=== PATIENT | female | born 1940 | race African-American/Black ===

== ENCOUNTER 2021-09-07 11:57 | Inpatient (IN) | payer MEDICARE ==
[~2021-09-07] VITALS: Ht 167.6 cm; Wt 99.3 kg
[2021-09-07] MEDS ORDERED: SODIUM CHLORIDE 0.9% 1,000 ML IV ONE (12:30)
[2021-09-07 12:39] LABS: BASOPHILS % 0.3 % (0.0-2.0); HEMATOCRIT. 34.1 % (36.0-48.0); HEMOGLOBIN. 11.7 g/dL (12.0-16.0); LYMPHOCYTES % 22.9 % (20.0-50.0); MEAN CORPUSCULAR HEMOGLOBIN 29.8 pg (28.0-32.0); MEAN PLATELET VOLUME 9.2 fl (7.4-10.4); MONOCYTES % 5.4 % (2.0-8.0); NEUTROPHILS % 68.4 % (40.0-76.0); PLATELET 192 x1000/uL (130-400); RED BLOOD CELL COUNT 3.91 mill/uL (4.2-5.4); RED CELL DISTRIBUTION WIDTH 13.4 % (11.6-14.6)
[2021-09-07 12:46] LABS: CHLORIDE 106 mEq/L (98-107)
[2021-09-07] MEDS ORDERED: DOCUSATE SODIUM 100MG CAPSULE PO PRN (19:15)
[2021-09-07] MEDS ORDERED: GUAIFENESIN 200MG/10ML SUGAR FREE UDC PO PRN (19:15)
[2021-09-07] MEDS ORDERED: MAGNESIUM/ALUMINUM HYDROXIDE/SIMETHICONE 30ML UDC PO PRN (19:15)
[2021-09-07] MEDS ORDERED: CLONIDINE 0.1MG TABLET PO PRN (19:15)
[2021-09-07] MEDS ORDERED: ONDANSETRON HCL 4MG/2ML INJ IV PRN (19:15)
[2021-09-07] MEDS ORDERED: TRAMADOL 50MG TABLET PO PRN (19:15)
[2021-09-07] MEDS ORDERED: ENOXAPARIN 40MG/0.4ML SYR SUBCUT SCH (19:15)
[2021-09-07] MEDS ORDERED: IPRATROPIUM/ALBUTEROL 0.5-3(2.5)MG/3ML NEB NEB PRN (19:15)
[2021-09-07] MEDS ORDERED: ACETAMINOPHEN 325MG TABLET PO PRN ×2 (19:15)
[2021-09-07] MEDS ORDERED: ZOLPIDEM TARTRATE 5MG TABLET PO PRN (19:15)
[2021-09-07] MEDS ORDERED: NITROGLYCERIN 0.4MG TABLET SL SL PRN (19:15)
[2021-09-07 19:44] LABS: ETHANOL BLOOD < 10 mg/dL
[2021-09-07 19:46] LABS: TOTAL IRON BINDING CAPACITY 257 ug/dL (250-450)
[2021-09-07 19:47] LABS: LDL CHOLESTEROL 66 mg/dL (5-100)
[2021-09-07 19:49] LABS: HDL CHOLESTEROL 44 mg/dL (40-59)
[2021-09-07 19:50] LABS: T4 FREE 0.93 ng/dL (0.76-1.46)
[2021-09-07 20:03] LABS: VITAMIN B12 SERUM 352 pg/mL (211-911)
[2021-09-07] MEDS ORDERED: DEXTROSE 50% WATER 50ML SYRINGE IV PRN (20:45)
[2021-09-07 20:52] LABS: FOLIC ACID (FOLATE) SERUM > 20.00 ng/mL (>5.38)
[2021-09-07] MEDS: BLOOD SUGAR DIAGNOSTIC STRIP TEST SCH (21:00)
[2021-09-07] MEDS: INSULIN LISPRO 100 UNITS/ML SUBCUT SCH (21:00)
[2021-09-07] MEDS: ENOXAPARIN 30MG/0.3ML SYR SUBCUT SCH (21:06)
[2021-09-07] MEDS: ASCORBIC ACID 500 MG TABLET PO SCH (21:06)
[2021-09-07] MEDS: FAMOTIDINE 20MG TABLET PO SCH (21:06)
[2021-09-07] MEDS: FUROSEMIDE 40MG/4ML VIAL IVP SCH (21:06)
[2021-09-07 21:55] LABS: *AMPHETAMINES SCREEN URINE NEGATIVE (NEGATIVE)
[2021-09-07 21:56] LABS: *BARBITURATES SCREEN URINE NEGATIVE (NEGATIVE); *BENZODIAZEPINES SCREEN URINE NEGATIVE (NEGATIVE); *COCAINE SCREEN URINE NEGATIVE (NEGATIVE); METHADONE URINE SCREEN NEGATIVE (NEGATIVE); OPIATES URINE SCREEN NEGATIVE (NEGATIVE); PHENCYCLIDINE URINE SCREEN NEGATIVE (NEGATIVE)
[2021-09-07 21:57] LABS: CANNABINOID URINE SCREEN NEGATIVE (NEGATIVE)
[2021-09-07] MEDS: HYDRALAZINE HCL 50MG TABLET PO SCH (22:23)
[2021-09-07] MEDS: SPIRONOLACTONE 25MG TABLET PO SCH (22:23)
[2021-09-08] VITALS (10 sets, daily range): BP systolic 128–163; BP diastolic 52–68
[2021-09-08 01:30] LABS: CREATINE KINASE 58 IU/L (26-192); CREATINE KINASE MB FRACTION < 1.0 ng/mL (0.5-3.6)
[2021-09-08 07:20] LABS: PHOSPHORUS 4.2 mg/dL (2.5-4.9)
[2021-09-08 07:23] LABS: CREATINE KINASE 62 IU/L (26-192)
[2021-09-08 07:24] LABS: CREATINE KINASE MB FRACTION < 1.0 ng/mL (0.5-3.6)
[2021-09-08] MEDS: INSULIN LISPRO 100 UNITS/ML SUBCUT SCH ×4 (07:40→20:57)
[2021-09-08] MEDS: BLOOD SUGAR DIAGNOSTIC STRIP TEST SCH ×4 (07:51→20:37)
[2021-09-08] MEDS: ASPIRIN 325MG EC TABLET PO SCH (08:27)
[2021-09-08] MEDS: ZINC SULFATE 220 MG ( 50 ) CAPSULE PO SCH (08:27)
[2021-09-08] MEDS: ASCORBIC ACID 500 MG TABLET PO SCH ×2 (08:27→20:36)
[2021-09-08] MEDS: SPIRONOLACTONE 25MG TABLET PO SCH ×2 (08:27→20:36)
[2021-09-08] MEDS: FUROSEMIDE 40MG/4ML VIAL IVP SCH ×2 (08:27→20:36)
[2021-09-08] MEDS ORDERED: CARV25TA47 MT (09:48)
[2021-09-08] MEDS ORDERED: ATOR20TA65 PO (09:48)
[2021-09-08] MEDS ORDERED: LOSA100T32 PO (09:48)
[2021-09-08] MEDS ORDERED: FURO-151 PO (09:48)
[2021-09-08] MEDS ORDERED: SPIR50TA5 PO (09:48)
[2021-09-08] MEDS ORDERED: PANT40SU PO (09:50)
[2021-09-08] MEDS ORDERED: HYDR-4135 MT (09:50)
[2021-09-08] MEDS ORDERED: APIX5TAB MT (09:50)
[2021-09-08] MEDS: HYDRALAZINE HCL 50MG TABLET PO SCH (13:14)
[2021-09-08] MEDS: FAMOTIDINE 20MG TABLET PO SCH (20:37)
[2021-09-08] MEDS: ENOXAPARIN 30MG/0.3ML SYR SUBCUT SCH (20:39)
[2021-09-08 21:16] LABS: CLARITY URINE CLEAR (CLEAR); COLOR URINE YELLOW (YELLOW); KETONES URINE NEGATIVE (NEGATIVE); LEUKOCYTE ESTERASE URINE NEGATIVE (NEGATIVE); NITRITE URINE NEGATIVE (NEGATIVE); OCCULT BLOOD URINE NEGATIVE (NEGATIVE); PROTEIN URINE NEGATIVE (NEGATIVE); SPECIFIC GRAVITY URINE 1.015 (1.005-1.030); UROBILINOGEN URINE 0.2 E.U./dL (0.2-1.0)
[2021-09-09] VITALS: BP 144/46
[2021-09-09] MEDS: HYDRALAZINE HCL 50MG TABLET PO SCH ×4 (01:22→21:33)
[2021-09-09 04:00] VITALS: BP 132/52
[2021-09-09] MEDS: BLOOD SUGAR DIAGNOSTIC STRIP TEST SCH ×4 (06:26→21:35)
[2021-09-09] MEDS: INSULIN LISPRO 100 UNITS/ML SUBCUT SCH ×4 (06:26→21:35)
[2021-09-09 08:09] VITALS: BP 142/62
[2021-09-09] MEDS: FUROSEMIDE 40MG/4ML VIAL IVP SCH ×2 (08:33→21:33)
[2021-09-09] MEDS: ASCORBIC ACID 500 MG TABLET PO SCH ×2 (08:33→21:34)
[2021-09-09] MEDS: ASPIRIN 325MG EC TABLET PO SCH (08:33)
[2021-09-09] MEDS: SPIRONOLACTONE 25MG TABLET PO SCH ×2 (08:33→21:34)
[2021-09-09] MEDS: ZINC SULFATE 220 MG ( 50 ) CAPSULE PO SCH (08:34)
[2021-09-09 12:03] VITALS: BP 121/80
[2021-09-09 15:36] VITALS: BP 122/68
[2021-09-09 20:00] VITALS: BP 139/60
[2021-09-09] MEDS: ENOXAPARIN 30MG/0.3ML SYR SUBCUT SCH (21:33)
[2021-09-09] MEDS: FAMOTIDINE 20MG TABLET PO SCH (21:34)
[2021-09-10] VITALS: BP 139/55
[2021-09-10 04:00] VITALS: BP 139/62
[2021-09-10] MEDS: HYDRALAZINE HCL 50MG TABLET PO SCH ×2 (05:43→13:42)
[2021-09-10] MEDS: BLOOD SUGAR DIAGNOSTIC STRIP TEST SCH ×2 (06:41→12:31)
[2021-09-10] MEDS: INSULIN LISPRO 100 UNITS/ML SUBCUT SCH ×2 (06:41→12:31)
[2021-09-10 07:21] VITALS: BP 126/67
[2021-09-10] MEDS: ZINC SULFATE 220 MG ( 50 ) CAPSULE PO SCH (08:02)
[2021-09-10] MEDS: ASPIRIN 325MG EC TABLET PO SCH (08:02)
[2021-09-10] MEDS: ASCORBIC ACID 500 MG TABLET PO SCH (08:02)
[2021-09-10] MEDS: SPIRONOLACTONE 25MG TABLET PO SCH (08:02)
[2021-09-10] MEDS: FUROSEMIDE 40MG/4ML VIAL IVP SCH (08:02)
[2021-09-10 12:35] VITALS: BP 138/74
[2021-09-10 15:39] VITALS: BP 138/63
[2021-09-10] MEDS ORDERED: ENOXAPARIN 40MG/0.4ML SYR SUBCUT SCH (20:00)
== END 2021-09-10 17:14 | disposition left against medical advice (07) | DRG 73 ==
LOC: ER 11:57 → MICUSO 17:10 → SUPCPDRO 19:05 → ENRESERV 22:54 → 8WST 23:50
PROVIDERS: ADMIT Internal Medicine; ATTEND Internal Medicine
DX: G90.9 Disorder of the autonomic nervous system, unspecified (principal); N17.0 Acute kidney failure with tubular necrosis; I50.33 Acute on chronic diastolic (congestive) heart failure; I11.0 Hypertensive heart disease with heart failure; E11.9 Type 2 diabetes mellitus without complications; D63.8 Anemia in other chronic diseases classified elsewhere; R91.8 Other nonspecific abnormal finding of lung field; Z20.822 Contact with and (suspected) exposure to COVID-19; R94.6 Abnormal results of thyroid function studies
CPT/HCPCS: 36415; 71045; 71275; 80053; 80061; 80305; 80320; 81003; 82550; 82553; 82607; 82746; 82962; 83036; 83540; 83550; 83735; 83880; 84100; 84439; 84443; 84484; 85025; 87426; 93005; 93306; 93970; 97162; 97166; 97535; 99285; J1650; J1815; J1940; J7030; G0480